=== PATIENT | female | born 1945 | race Caucasian/White ===

== ENCOUNTER 2023-05-12 06:12 | Outpatient (CLI) | payer OTHER ==
[2023-05-12] VITALS (23 sets, daily range): BP systolic 138–197; BP diastolic 63–118; PULSE 60–99
[~2023-05-12 06:12] MED LIST: ACET-2319 PO; ALBU8HFA IH; CETI-1 PO; FLUO20CA39 PO; GABA-338 PO; METH-603 PO; MULT-785 PO; NORCO10T PO; PROP40TA72 PO; TRIA1TAB92 PO; [UNRECOGNIZED DRUG - CODE] PO
== END 2023-05-12 23:59 | disposition home or self-care (01) ==
LOC: CARD DIAG 06:12
PROVIDERS: ATTEND Internal Medicine Interventional Cardiology
DX: R55 Syncope and collapse (principal); R42 Dizziness and giddiness
CPT/HCPCS: 93660